=== PATIENT | female | born 1975 | race Caucasian/White ===

== ENCOUNTER 2019-06-08 22:24 | Emergency (ER) | payer MEDICAID ==
[2019-06-09] MEDS: KETOROLAC 30 MG INJ IM (00:45)
== END 2019-06-09 01:19 | disposition home or self-care (01) ==
LOC: FTE 22:24
DX: R07.81 Pleurodynia (principal)
CPT/HCPCS: 71046; 81025; 93005; 96372; 99284-25

== ENCOUNTER 2019-06-22 15:05 | Emergency (ER) | payer MEDICAID ==
[2019-06-22] MEDS: KETOROLAC 30 MG INJ IM (16:00)
== END 2019-06-22 17:35 | disposition home or self-care (01) ==
LOC: FTE 15:05
DX: M25.562 Pain in left knee (principal); M25.552 Pain in left hip
CPT/HCPCS: 73501; 73510; 73562; 81025; 96372; 99284-25